=== PATIENT | male | born 1995 | race Caucasian/White ===

== ENCOUNTER 2016-11-01 02:42 | Emergency (ER) | payer OTHER ==
[2016-11-01] MEDS ORDERED: NS 1,000 ML IV ONE ×2 (02:52→05:13)
[2016-11-01] MEDS ORDERED: ONDANSETRON 4 MG/2 ML VIAL IVP ONE (02:52)
--- NOTE | 2016-11-01 02:56 | EDPHY ---
H & P Source: Patient, Police, EMS HPI/ROS: HPI CHIEF COMPLAINT: Alcohol Intoxication, found down HISTORY OF PRESENT ILLNESS: This patient 21-year-old male, unknown medical history presents emergency room by EMS and police after he was found in his apartment hallway with a recreational therapy technician his forehead that said his room number appear to be highly intoxicated alcohol. He is extremely lethargic upon arrival. EMS reports that he did try to give him intranasal Narcan as well as IV Narcan 2.5 mg and were unable to make a response. Does smell of alcohol on his a dysconjugate gaze. Upon arrival here in emergency room the patient is breathing his vitals are stable, he is in a cervical collar in case he had trauma, he is not vomiting he smells of alcohol his roommates told EMS that he drank a lot of alcohol this evening. On sure exactly what quantity Past Medical History: Unknown medical history Past Surgical History: unknown surgical Social History: [employer] student, doses alcohol this evening per his roommates unknown drugs Family History: Unknown ROS REVIEW OF SYSTEMS: extremely limited due to patient's clinical intoxication Exam Constitutional Intoxicated, triage nursing summary reviewed, vital signs reviewed, Sleepy, smells of alcohol Eyes normal conjunctivae and sclera, horizontal beating nystagmus consistent acute alcohol intoxication, otherwise pupils equal and react to light HENT normal inspection, atraumatic, moist mucus membranes, no epistaxis, neck supple/ no meningismus, no raccoon eyes. Respiratory clear to auscultation bilaterally, normal breath sounds, no respiratory distress, no wheezing. Cardiovascular rate normal, regular rhythm, no murmur, no edema, distal pulses normal. Gastrointestinal soft, non-tender, no rebound, no guarding, normal bowel sounds, no distension, no pulsatile mass. Genitourinary no CVA tenderness. Musculoskeletal no midline vertebral tenderness, full range of motion, no calf swelling, no tenderness of extremities, no meningismus, good pulses, neurovascularly intact. Skin right facial abrasion vertical appears old, also laceration right chest sutured 2 cm old, pink, warm, & dry, no rash, skin atraumatic. Neurologic sleepy, intoxicated with alcohol,, alert and oriented x 3, AAOx3, moves all 4 extremities equally, motor intact, sensory intact, CN II-XII intact , , normal vision, normal speech. Psychiatric normal mood/affect. Heme/Lymph/Immune no lymphadenopathy. Differential Diagnosis: Includes but is not limited to in a particular order acute alcohol intoxication, alcohol abuse, dehydration, electrolyte abnormality , nausea vomiting from acute alcohol intoxication Medical Decision Making: Plan for this patient he was found in the hallway on witness, patient highly intoxicated with alcohol, very lethargic, was on full awake overnight monitor including pulse ox, had an IV established will give him Zofran and IV fluids, he will have a CT scan of his head and neck and chest x-ray to make sure does not have trauma. Closely monitor him for further lethargy. If he becomes more lethargic he may need airway protection. Re-evaluation: CT scan of the head without IV contrast. The results of the study are negative for acute fracture bleed. The study was read by Dr. Hummel. I viewed the images myself on the PACS system. CT scan of the so he cervical spine without IV contrast The results of the study are negative for acute fracture malalignment. The study was read by Dr. Hummel. I viewed the images myself on the PACS system. ED x-ray chest one view: Negative for acute traumatic injury specifically no pneumothorax. No rib fractures visualized. Image interpreted by myself. [id number]: Patient's CT scans reviewed no trauma. Patient's alcohol level 408. Highly intoxicated. Still sobering. Does respond to painful stimuli however not verbal this time. No purposeful movements. Protecting his airway at this time. Patient signed over to Dr. Cervantes at 7:00 a.m. shift change. Plan is for further sobriety and then discharge (Howard Alfaro) Constitutional: Initial Vital Signs Temperature (C) 36.4 C 11/01/16 02:45 Heart Rate 74 11/01/16 02:45 Respiratory Rate 14 11/01/16 02:45 Blood Pressure 133/70 H 11/01/16 02:45 O2 Sat (%) 96 11/01/16 02:45 O2 Delivery Mode Nasal Cannula O2 (L/minute) 4 Allergies/Adverse Reactions: Unable to Assess Allergy (Unverified 11/01/16 03:06) Home Medications: Medication Instructions Recorded Unobtainable 11/01/16 Medical Decision Making Other Provider: Assumed care at 0700. Patient initially arrived with AMS presumed secondary to severe alcohol intoxication. Patient currently sleeping with patent airway. Plan for continued observation and re-evaluation. Patient re-evaluated hourly with no significant change in hemodynamic status. On re-evaluation at 1300, patient now awake and ambulatory, sobering appropriately. Repeat CXR is normal. Patient has now been observed in the ED for more than 10 hours. He is appropriate for transfer to the [facility]. (Doc Cervantes) - Data Points Laboratory Results: Laboratory Results 11/01/16 02:45 11/01/16 02:45 11/01/16 11/01/16 11/01/16 07:19 03:25 02:45 WBC RBC Hgb Hct MCV MCH MCHC RDW Plt Count MPV Neut % (Auto) Lymph % (Auto) Edwards % (Auto) Eos % (Auto) Baso % (Auto) Nucleat RBC Rel Count Absolute Neuts (auto) Absolute Lymphs (auto) Absolute Monos (auto) Absolute Eos (auto) Absolute Basos (auto) Absolute Nucleated RBC Immature Gran % Immature Gran # Sodium 149 mEq/L H mEq/L (134-144) Potassium 4.1 mEq/L mEq/L (3.5-5.2) Chloride 106 mEq/L mEq/L (97-110) Carbon Dioxide 28 mEq/l mEq/l (22-31) Anion Gap 15 mEq/L mEq/L (8-16) BUN 19 mg/dL mg/dL (7-23) Creatinine 0.9 mg/dL mg/dL (0.7-1.3) Estimated GFR > 60 Glucose 112 mg/dL H mg/dL (70-100) Calcium 9.2 mg/dL mg/dL (8.5-10.4) Urine Opiates Screen NEGATIVE (NEGATIVE) Urine Barbiturates NEGATIVE (NEGATIVE) Ur Phencyclidine Scrn NEGATIVE (NEGATIVE) Ur Amphetamine Screen NEGATIVE (NEGATIVE) U Benzodiazepines Scrn NEGATIVE (NEGATIVE) Urine Cocaine Screen NEGATIVE (NEGATIVE) U Marijuana (THC) Screen NEGATIVE (NEGATIVE) Ethyl Alcohol 337 mg/dL H mg/dL (0-10) 11/01/16 11/01/16 02:45 02:45 WBC 10.66 10^3/uL H 10^3/uL (3.80-9.50) RBC 5.77 10^6/uL 10^6/uL (4.40-6.38) Hgb 17.7 g/dL H g/dL (13.7-17.5) Hct 52.6 % H % (40.0-51.0) MCV 91.2 fL fL (81.5-99.8) MCH 30.7 pg pg (27.9-34.1) MCHC 33.7 g/dL g/dL (32.4-36.7) RDW 12.6 % % (11.5-15.2) Plt Count 197 10^3/uL 10^3/uL (150-400) MPV 10.7 fL fL (8.7-11.7) Neut % (Auto) 40.6 % % (39.3-74.2) Lymph % (Auto) 44.8 % % (15.0-45.0) Edwards % (Auto) 7.7 % % (4.5-13.0) Eos % (Auto) 5.7 % % (0.6-7.6) Baso % (Auto) 0.7 % % (0.3-1.7) Nucleat RBC Rel Count 0.0 % % (0.0-0.2) Absolute Neuts (auto) 4.33 10^3/uL 10^3/uL (1.70-6.50) Absolute Lymphs (auto) 4.78 10^3/uL H 10^3/uL (1.00-3.00) Absolute Monos (auto) 0.82 10^3/uL H 10^3/uL (0.30-0.80) Absolute Eos (auto) 0.61 10^3/uL H 10^3/uL (0.03-0.40) Absolute Basos (auto) 0.07 10^3/uL 10^3/uL (0.02-0.10) Absolute Nucleated RBC 0.00 10^3/uL 10^3/uL (0-0.01) Immature Gran % 0.5 % % (0.0-1.1) Immature Gran # 0.05 10^3/uL 10^3/uL (0.00-0.10) Sodium Potassium Chloride Carbon Dioxide Anion Gap BUN Creatinine Estimated GFR Glucose Calcium Urine Opiates Screen Urine Barbiturates Ur Phencyclidine Scrn Ur Amphetamine Screen U Benzodiazepines Scrn Urine Cocaine Screen U Marijuana (THC) Screen Ethyl Alcohol 408 mg/dL H* mg/dL (0-10) Medications Given: Discontinued Medications Sodium Chloride (Ns) 1,000 mls @ 0 mls/hr IV ONCE ONE PRN Reason: Wide Open Stop: 11/01/16 02:53 Last Admin: 11/01/16 03:00 Dose: 1,000 mls Sodium Chloride (Ns) 1,000 mls @ 0 mls/hr IV ONCE ONE PRN Reason: Wide Open Stop: 11/01/16 05:14 Last Admin: 11/01/16 05:33 Dose: 1,000 mls Ondansetron HCl (Zofran) 4 mg IVP EDNOW ONE Stop: 11/01/16 02:53 Last Admin: 11/01/16 03:00 Dose: 4 mg Departure - Departure Disposition: Home, Routine, Self-Care Clinical Impression: Alcoholic intoxication Qualifiers: Complication of substance-induced condition: uncomplicated Qualified Code(s): F10.120 - Alcohol abuse with intoxication, uncomplicated Condition: Good Instructions: At-Risk Alcohol Use (ED), Abuse of Alcohol (ED) Additional Instructions: Please seek help for alcohol problem. Referrals: Patient,NotPresent [Primary Care Provider] - As per Instructions
[2016-11-01 03:00] VITALS: TEMP 97.5
[2016-11-01 03:24] LABS: ETHANOL SERUM 408 mg/dL (0-10)
[2016-11-01 06:27] VITALS: RESP 16
[2016-11-01 08:21] LABS: ETHANOL SERUM 337 mg/dL (0-10)
[2016-11-01 08:44] LABS: ANION GAP 15 mEq/L (8-16); CALCIUM 9.2 mg/dL (8.5-10.4); CARBON DIOXIDE 28 mEq/l (22-31); CHLORIDE 106 mEq/L (97-110); CREATININE 0.9 mg/dL (0.7-1.3); GLOMERULAR FILTRATION RATE > 60; GLUCOSE 112 mg/dL (70-100); POTASSIUM 4.1 mEq/L (3.5-5.2); SODIUM 149 mEq/L (134-144)
[2016-11-01 09:04] LABS: % IMMATURE GRANULYOCYTES 0.5 % (0.0-1.1); ABSOLUTE IMMATURE GRANULOCYTES 0.05 10^3/uL (0.00-0.10); ADD DIFF? NO; ADD MORPH? NO; ADD SCAN? NO; ATYPICAL LYMPHOCYTE FLAG 60 (0-99); FRAGMENT RBC FLAG 0 (0-99); HEMATOCRIT 52.6 % (40.0-51.0); HEMOGLOBIN 17.7 g/dL (13.7-17.5); LEFT SHIFT FLG 0 (0-99); LIPEMIA HEMOLYSIS FLAG 80 (0-99); MEAN CELL HEMOGLOBIN 30.7 pg (27.9-34.1); MEAN CELL HEMOGLOBIN CONCENTR. 33.7 g/dL (32.4-36.7); MEAN CELL VOLUME 91.2 fL (81.5-99.8); MEAN PLATELET VOLUME 10.7 fL (8.7-11.7); PLATELET CLUMPS FLAG 10 (0-99); PLATELET COUNT 197 10^3/uL (150-400); RED BLOOD CELL COUNT 5.77 10^6/uL (4.40-6.38); RED CELL DISTRIBUTION WIDTH 12.6 % (11.5-15.2)
[2016-11-01 09:28] VITALS: PULSE 85
[2016-11-01 13:10] VITALS: BP 119/54; O2SAT 95
[2016-11-01] MEDS ORDERED: IBUPROFEN 600 MG TAB PO ONE (13:11)
== END 2016-11-01 13:23 | disposition home or self-care (01) ==
DX: F10.120 Alcohol abuse with intoxication, uncomplicated (principal)
CPT/HCPCS: 80305; 96374; G0480; J2405